=== PATIENT | female | born 1985 | race Caucasian/White ===

== ENCOUNTER 2019-09-09 18:47 | Emergency (ER) | payer OTHER, SELFPAY ==
[~2019-09-09] VITALS: Ht 175.3 cm; Wt 120.2 kg
[~2019-09-09 18:47] MED LIST: FOLI1TAB19 PO; PREN-385 PO
[2019-09-09 19:16] VITALS: BP 138/82
[2019-09-09 20:43] VITALS: BP 138/82
--- NOTE | 2019-09-09 20:43 | NUR ---
Patient discharged with v/s stable. Written and verbal after care instructions given and explained. Patient verbalized understanding. Ambulatory with steady gait. All questions addressed prior to discharge. Advised to follow up with PMD. RX OF TAMIFLU, IMODUM, IBUPROFEN
== END 2019-09-09 20:43 | disposition home or self-care (01) ==
LOC: MED 18:47
DX: B34.9 Viral infection, unspecified (principal); R19.7 Diarrhea, unspecified; R03.0 Elevated blood-pressure reading, without diagnosis of hypertension; Z20.828 Contact with and (suspected) exposure to other viral communicable diseases
CPT/HCPCS: 87804; 99283; U0003